=== PATIENT | female | born 2000 | race African-American/Black ===

== ENCOUNTER 2025-03-10 13:51 | Emergency (ER) | payer OTHER ==
[2025-03-10 14:08] VITALS: RESP 16
--- NOTE | 2025-03-10 14:58 | ED ---
Abdominal Pain HPI - General Source: patient, RN notes reviewed Mode of arrival: ambulatory Limitations: no limitations <Juan J Powers - Last Filed: 03/10/25 14:57> - General Source: patient, RN notes reviewed Mode of arrival: ambulatory Limitations: no limitations - History of Present Illness MD Complaint: abdominal pain <Tawana Reid - Last Filed: 03/10/25 19:47> - General Chief Complaint: Abdominal Pain Stated Complaint: Abd Pain/Vaginal Bleeding Time Seen by Provider: 03/10/25 14:01 - History of Present Illness Initial Comments: Quick [id number] female presents emergency department complaining of abnormal vaginal bleeding and abdominal discomfort. Patient states that she started having vaginal bleeding along with increased abdominal cramping. Patient states that she had her tubes removed 1 year ago. She states she did have a mental cycle since that. Patient denies any chance patient without complaints. (Juan J Powers) This is a 25-year-old female who presents to the emergency department for pelvic pain and vaginal bleeding. Patient states that she had a salpingectomy 1 year ago. She has had intermittent pelvic pain over the last month states that yesterday she started having vaginal bleeding. She has not had any vaginal bleeding yet since having her tubes removed. States that she had originally gone to urgent care and they started her on medication for a bacterial infection and gave her a shot of pain medication. She has otherwise not been taking any [id number] medication. (Tawana Reid) - Related Data Previous Rx's Medication Instructions Recorded Ketorolac [Toradol] 10 mg PO Q6HR PRN #15 tab 03/10/25 Allergies Allergy/AdvReac Type Severity Reaction Status Date / Time amoxicillin AdvReac Rash/Hives Verified 03/10/25 14:08 Review of Systems ROS Other: All systems not noted in ROS Statement are negative. <Juan J Powers - Last Filed: 03/10/25 14:57> ROS Other: All systems not noted in ROS Statement are negative. <Tawana Reid - Last Filed: 03/10/25 19:47> ROS Statement: Those systems with pertinent positive or pertinent negative responses have been documented in the HPI. Past Medical History Past Medical History: No Reported History History of Any Multi-Drug Resistant Organisms: None Reported Past Surgical History: Section, Cholecystectomy, Tubal Ligation Past Psychological History: No Psychological Hx Reported Smoking Status: Vaper Past Alcohol Use History: Rare Past Drug Use History: Marijuana <Juan J Powers - Last Filed: 03/10/25 14:57> General Exam Limitations: no limitations <Juan J Powers - Last Filed: 03/10/25 14:57> Limitations: no limitations General appearance: alert, in no apparent distress Head exam: Present: atraumatic, normocephalic, normal inspection Respiratory exam: Present: normal lung sounds bilaterally. Absent: respiratory distress, wheezes, rales, rhonchi, stridor Cardiovascular Exam: Present: regular rate, normal rhythm GI/Abdominal exam: Present: soft, normal bowel sounds. Absent: distended, tenderness, guarding, rebound, rigid Neurological exam: Present: alert, oriented X3, CN II-XII intact Psychiatric exam: Present: normal affect, normal mood Skin exam: Present: warm, dry, intact, normal color. Absent: rash <Tawana Reid - Last Filed: 03/10/25 19:47> - General Exam Comments Initial Comments: Visual Physical Exam Vital signs reviewed General: Well-appearing, nontoxic, no acute distress. Head: Normocephalic, atraumatic Eyes: PERRLA, EOMI ENT: Airway patent Chest: Nonlabored breathing Skin: No visual rash, normal skin tone Neuro: Alert and oriented 3 Musculoskeletal: No gross abnormalities (Juan J Powers) Course Vital Signs 03/10/25 03/10/25 14:05 18:08 Temperature 97.9 F 98 F Pulse Rate 65 66 Respiratory 16 16 Rate Blood Pressure 123/79 120/78 O2 Sat by Pulse 99 99 Oximetry Medical Decision Making <Juan J Powers - Last Filed: 03/10/25 14:57> - Lab Data Result diagrams: 03/10/25 15:10 03/10/25 15:10 - Radiology Data Radiology results: report reviewed, image reviewed <Tawana Reid - Last Filed: 03/10/25 19:47> - Medical Decision Making I completed the quick note portion of this chart signed Juan J Powers PA-C (Juan J Powers) This is a 25 year old female who presents to the emergency department for pelvic pain and bleeding. Was pt. sent in by a medical professional or institution? @ -No Did you speak to anyone other than the patient for history? @ -No Did you review nursing and triage notes? @ -Yes, and I agree, it is accurate with regards to the patient's symptoms. Were old charts reviewed? @ -No Differential Diagnosis? @ -Differential Abdominal Pain Women: Appendicitis, Cholecystitis, diverticulosis, ischemic bowel, pancreatitis, hepatitis, UTI, gastroenteritis, AAA, incarcerated hernia, bowel obstruction, constipation, inflammatory bowel, hepatitis, peptic ulcer disease, splenic infarction, perforated viscus, vulvitis, ovarian torsion, PID, kidney stone, placenta abruption, this is not meant to be an all-inclusive list EKG interpreted by me (3pts min.)? @ -Not obtained X-rays interpreted by me (1pt min.)? @ -Not obtained CT interpreted by me (1pt min.)? @ -Not obtained U/S interpreted by me (1pt. min.)? @ -Transvaginal ultrasound obtained. My interpretation identifies no evidence of an ovarian torsion. What testing was considered but not performed? (CT, X-rays, U/S, labs)? Why? @ -None What meds were considered but not given? Why? @ -None Did you discuss the management of the patient with other professionals? @ -No Did you reconcile home meds? @ -No Was smoking cessation discussed for >3mins.? @ -No Was critical care preformed (if so, how long)? @ -No Were there social determinants of health that impacted care today? How? (Homelessness, low income, unemployed, alcoholism, drug addiction, transportation, low edu. Level, literacy, decrease access to med. care, fdc, rehab)? @ -No Was there de-escalation of care discussed even if they declined? (Discuss DNR or withdrawal of care, Hospice)? @ -No What co-morbidities impacted this encounter? (DM, HTN, Smoking, COPD, CAD, Cancer, CVA, Hep., AIDS, mental health diagnosis, sleep apnea, morbid obesity)? @ -None Was patient admitted / discharged? @ -Discharged. Lab work unremarkable. Urinalysis demonstrates blood, consistent with patient being on her menstrual cycle. There is somewhat of an elevation in WBCs, however she advised that she was started on antibiotics by urgent care earlier today. Transvaginal ultrasound obtained revealing no acute process. Advised that her body may be readjusting to this change and there is not much from our perspective that can be done. Pain was treated in the emerg ency department. Toradol prescribed for pain control. Advised follow-up with her LAUNCH ENGINEER for reevaluation. Patient discharged home in stable condition. Case discussed with ED attending Dr. Bhagat. Return precautions reviewed in depth, the patient is instructed to return to the emergency department with any new, worsening, or concerning symptoms. Patient verbalized understanding. Undiagnosed new problem with uncertain prognosis? @ -None Drug Therapy requiring intensive monitoring for toxicity (Heparin, Nitro, Insulin, Cardizem)? @ -None Were any procedures done? @ -None Diagnosis/symptom? @ -Pelvic pain, vaginal bleeding Acute, or Chronic, or Acute on Chronic? @ -Acute Uncomplicated (without systemic symptoms) or Complicated (systemic symptoms)? @ -Uncomplicated Side effects of treatment? @ -None Exacerbation, Progression, or Severe Exacerbation] @ -Not applicable Poses a threat to life or bodily function? @ -No (Tawana Reid) - Lab Data Lab Results 03/10/25 03/10/25 03/10/25 Range/Units 15:10 15:10 15:16 WBC 13.73 H (4.50-10.00) 10*3/uL RBC 4.34 (4.10-5.20) 10*6/uL Hgb 13.3 (12.0-15.0) g/dL Hct 38.7 (37.2-46.3) % MCV 89.2 (80.0-97.0) fL MCH 30.6 (27.0-32.0) pg MCHC 34.4 (32.0-37.0) g/dL Plt Count 256 (140-440) 10*3/uL MPV 11.2 (9.5-12.2) fL Immature Gran % (Auto) 0.4 % Neutrophils % 70.7 % Lymphocytes % 21.2 % Monocytes % 5.8 % Eosinophils % 1.5 % Basophils % 0.4 % Immature Gran # 0.06 H (0.00-0.04) 10*3/uL Neutrophils # 9.72 H (1.80-7.70) 10*3/uL Lymphocytes # 2.91 (0.90-5.00) 10*3/uL Monocytes # 0.79 (0.20-1.00) 10*3/uL Eosinophils # 0.20 (0.04-0.35) 10*3/uL Basophils # 0.05 (0.00-0.10) 10*3/uL Sodium 138 (137-145) mmol/L Potassium 3.5 (3.5-5.1) mmol/L Chloride 110 H (98-107) mmol/L Carbon Dioxide 20 L (22-30) mmol/L Anion Gap 8 mmol/L BUN 9 (7-17) mg/dL Creatinine 0.70 (0.52-1.04) mg/dL Est GFR (CKD-EPI)AfAm >90 (>60 ml/min/1.73 sqM) Est GFR (CKD-EPI)NonAf >90 (>60 ml/min/1.73 sqM) Glucose 93 (74-99) mg/dL Calcium 9.3 (8.4-10.2) mg/dL Total Bilirubin 0.5 (0.2-1.3) mg/dL AST 24 (14-36) U/L ALT 19 (4-34) U/L Alkaline Phosphatase 78 (38-126) U/L Total Protein 7.1 (6.3-8.2) g/dL Albumin 4.3 (3.5-5.0) g/dL Urine Color Red Urine Appearance Cloudy H (Clear) Urine pH 6.0 (5.0-8.0) Ur Specific [place] 1.026 (1.001-1.035) Urine Protein 1+ H (Negative) Urine Glucose (UA) Negative (Negative) Urine Ketones Negative (Negative) Urine Blood Large H (Negative) Urine Nitrite Negative (Negative) Urine Bilirubin Negative (Negative) Urine Urobilinogen 2.0 (<2.0) mg/dL Ur Leukocyte Esterase Small H (Negative) Urine RBC >182 H (0-5) /hpf Urine WBC 48 H (0-5) /hpf Urine Mucus Many H (None) /hpf Disposition <Juan J Powers - Last Filed: 03/10/25 14:57> Is patient prescribed a controlled substance at d/c from ED?: No Time of Disposition: 17:40 <Tawana Reid - Last Filed: 03/10/25 19:47> Clinical Impression: Pelvic pain, Vaginal bleeding Disposition: HOME SELF-CARE Instructions (If sedation given, give patient instructions): Abnormal (Dysfunctional) Uterine Bleeding (ED), Dysmenorrhea (ED), Pelvic Pain in Women (ED), Menorrhagia (ED) Additional Instructions: Return to the emergency department with any new, worsening, or concerning symptoms. Take the Toradol with Tylenol as needed for pain relief. If you choose to take the Toradol, do not take any other anti-inflammatories such as ibuprofen, take one or the other. Follow-up with your LAUNCH ENGINEER. Prescriptions: Ketorolac [Toradol] 10 mg PO Q6HR PRN #15 tab PRN Reason: Pain Referrals: None,Stated [REFERRING] - 1-2 days
[2025-03-10 15:38] LABS: Basophils # (A) 0.05 10*3/uL (0.00-0.10); Basophils % (A) 0.4 %; Eosinophils % (A) 1.5 %; HCT 38.7 % (37.2-46.3); HGB 13.3 g/dL (12.0-15.0); Lymphocytes # (A) 2.91 10*3/uL (0.90-5.00); Lymphocytes % (A) 21.2 %; MCH 30.6 pg (27.0-32.0); MCHC 34.4 g/dL (32.0-37.0); MCV 89.2 fL (80.0-97.0); Mean Platelet Volume 11.2 fL (9.5-12.2); Monocytes # (A) 0.79 10*3/uL (0.20-1.00); Monocytes % (A) 5.8 %; Neutrophils # (A) 9.72 10*3/uL (1.80-7.70); Neutrophils % (A) 70.7 %; Platelet Count 256 10*3/uL (140-440); RBC 4.34 10*6/uL (4.10-5.20); RDW 15.1 % (11.5-14.5); WBC 13.73 10*3/uL (4.50-10.00)
[2025-03-10 15:41] LABS: Appearance,Urine Cloudy (Clear); Bilirubin,Urine Negative (Negative); Blood,Urine Large (Negative); Color,Urine Red; Glucose,Urine (UA) Negative (Negative); Ketones,Urine Negative (Negative); Leukocyte Esterase,Urine Small (Negative); Mucus,Urine Many /hpf; Nitrite,Urine Negative (Negative); Protein,Urine 1+ (Negative); RBC,Urine >182 /hpf (0-5); Specific Gravity,Urine 1.026 (1.001-1.035); WBC,Urine 48 /hpf (0-5)
[2025-03-10 15:43] LABS: ALT 19 U/L (4-34); AST 24 U/L (14-36); African American GFR (CKD) >90 (>60 ml/min/1.73 sqM); Albumin 4.3 g/dL (3.5-5.0); Alkaline Phosphatase 78 U/L (38-126); Anion Gap 8 mmol/L; Blood Urea Nitrogen 9 mg/dL (7-17); Calcium 9.3 mg/dL (8.4-10.2); Carbon Dioxide 20 mmol/L (22-30); Chloride 110 mmol/L (98-107); Glucose 93 mg/dL (74-99); Non-African American GFR(CKD) >90 (>60 ml/min/1.73 sqM); Potassium 3.5 mmol/L (3.5-5.1); Sodium 138 mmol/L (137-145); Total Bilirubin 0.5 mg/dL (0.2-1.3); Total Protein 7.1 g/dL (6.3-8.2)
--- NOTE | 2025-03-10 16:01 | US ---
EXAMINATION TYPE: US transvaginal DATE OF EXAM: 03/10/2025 COMPARISON: NONE CLINICAL INDICATION: Female, 25 years old with history of pain, abn bleeding; Csection with tubal one year ago, amenorrhea since; Midline pelvic cramping x 1 month with new onset heavy bleeding with chris ts starting yesterday; Patient denies any other signs, symptoms, or relevant history TECHNIQUE: Transvaginal (TV). Transvaginal sonographic images were ordered. Doppler imaging: Color Doppler Images were obtained. Spectral doppler images were obtained. FINDINGS: Date of LMP: unknown EXAM MEASUREMENTS: Uterus: 9.2 x 4.5 x 6.4 cm Endometrial Stripe: 1.2 cm Right Ovary: 3.6 x 2.3 x 2.8 cm Left Ovary: 2.8 x 2.3 x 2.1 cm 1. Uterus: Anteverted Heterogenous areas at anterior lower uterine segment, ? Area of c section sc ar vs fibroids - seen distorting endometrium . This appears to be related to prior surgery correlate for . 2. Endometrium: Thickened with debris within 3. Right Ovary: wnl 4. Left Ovary: wnl Spectral, color and waveform doppler imaging shows good arterial and venous flow within the ovaries ; there is no evidence for ovarian torsion. 5. Bilateral Adnexa: wnl 6. Posterior cul-de-sac: trace fluid noted IMPRESSION: 1. No acute pelvic abnormality by ultrasound O-RADS 2021 [email or web address] [email or web address], , 03/10/2025 3:59 PM
[2025-03-10] MEDS: ACET/COD 300 MG/30 MG STARTER PACK 6 TAB BTL PO STA (18:00)
[2025-03-10] MEDS: KETOROLAC 15 MG/ML 1 ML VIAL IM STA (18:01)
[2025-03-10] MEDS: MORPHINE SULFATE 4 MG/ML SYRINGE IM STA (18:03)
[2025-03-10 18:09] VITALS: BP 120/78; PULSE 66; TEMP 98
== END 2025-03-10 18:11 | disposition home or self-care (01) ==
LOC: EC 13:51
DX: N93.9 Abnormal uterine and vaginal bleeding, unspecified (principal); R10.2 Pelvic and perineal pain; F17.290 Nicotine dependence, other tobacco product, uncomplicated; Z88.0 Allergy status to penicillin
CPT/HCPCS: 36415; 80053; 85025; 81001; 87086; 76830; 99284; 96372; J1885; 93975